=== PATIENT | male | born 1955 | race Caucasian/White ===

== ENCOUNTER 2016-10-07 17:23 | Emergency (ER) | payer BC ==
[2016-10-07 21:40] LABS: HEMOGLOBIN 16.1 gm/dl (14.0-17.5); RED BLOOD COUNT 5.05 M/UL (4.20-5.50); WHITE BLOOD COUNT 9.1 K/UL (4.5-11.0)
[2016-10-07 22:19] LABS: BUN/CREATININE RATIO 11 (0-10)
== END 2016-10-08 01:39 | disposition home or self-care (01) ==
LOC: ER1 17:23
PROVIDERS: Specialist/Technologist Athletic Trainer
DX: I49.3 Ventricular premature depolarization (principal); R00.8 Other abnormalities of heart beat; I10 Essential (primary) hypertension; J44.9 Chronic obstructive pulmonary disease, unspecified; F17.200 Nicotine dependence, unspecified, uncomplicated; Z88.8 Allergy status to other drugs, medicaments and biological substances
CPT/HCPCS: 36415; 71250; 80053; 82550; 82553; 83605; 83874; 83880; 84439; 84443; 84484; 85025; 93005; 94664; 96360; 99285; J7040

== ENCOUNTER 2016-11-18 18:35 | Inpatient (IN) | payer BC ==
[~2016-11-18] VITALS: Ht 180.3 cm; Wt 90.7 kg
[2016-11-18 19:33] LABS: HEMOGLOBIN 15.6 gm/dl (14.0-17.5); RED BLOOD COUNT 4.85 M/UL (4.20-5.50); WHITE BLOOD COUNT 8.7 K/UL (4.5-11.0)
[2016-11-18 20:04] LABS: BUN/CREATININE RATIO 13 (0-10)
[2016-11-19] MEDS ORDERED: ENDOCET 5-3251 EACH PO (00:23)
[2016-11-19] MEDS ORDERED: PROAIR HFA8.5 GM INH (00:27)
[2016-11-19] MEDS ORDERED: NEURONTIN 300300 MG PO (00:29)
[2016-11-19] MEDS ORDERED: PROMETHAZINE HC25 M1 PO (00:30)
[2016-11-19] MEDS ORDERED: ALLOPURINOL300 MG PO (00:33)
[2016-11-19] MEDS ORDERED: ZYRTEC10 M3 PO (00:34)
[2016-11-19] MEDS ORDERED: METOPROLOL TART25 MG PO (00:35)
[2016-11-19 06:57] LABS: BUN/CREATININE RATIO 14 (0-10)
[2016-11-19 07:48] LABS: RED BLOOD COUNT 4.44 M/UL (4.20-5.50); WHITE BLOOD COUNT 10.8 K/UL (4.5-11.0)
[2016-11-20 05:58] LABS: HEMOGLOBIN 14.2 gm/dl (14.0-17.5); RED BLOOD COUNT 4.46 M/UL (4.20-5.50); WHITE BLOOD COUNT 8.9 K/UL (4.5-11.0)
[2016-11-20 06:17] LABS: BUN/CREATININE RATIO 13 (0-10)
[2016-11-21 03:42] LABS: HEMOGLOBIN 13.5 gm/dl (14.0-17.5); RED BLOOD COUNT 4.26 M/UL (4.20-5.50); WHITE BLOOD COUNT 9.3 K/UL (4.5-11.0)
[2016-11-21 04:01] LABS: BUN/CREATININE RATIO 15 (0-10)
[2016-11-22 03:52] LABS: HEMOGLOBIN 12.8 gm/dl (14.0-17.5); RED BLOOD COUNT 4.04 M/UL (4.20-5.50)
[2016-11-22 04:00] LABS: WHITE BLOOD COUNT 5.7 K/UL (4.5-11.0)
[2016-11-22 04:15] LABS: BUN/CREATININE RATIO 28 (0-10)
[2016-11-23 03:37] LABS: HEMOGLOBIN 12.8 gm/dl (14.0-17.5); RED BLOOD COUNT 4.1 M/UL (4.20-5.50); WHITE BLOOD COUNT 4.7 K/UL (4.5-11.0)
[2016-11-23 03:53] LABS: BUN/CREATININE RATIO 33 (0-10)
[2016-11-24 03:52] LABS: HEMOGLOBIN 14.3 gm/dl (14.0-17.5); RED BLOOD COUNT 4.51 M/UL (4.20-5.50)
[2016-11-24 03:57] LABS: WHITE BLOOD COUNT 8.3 K/UL (4.5-11.0)
[2016-11-24 04:17] LABS: BUN/CREATININE RATIO 34 (0-10)
[2016-11-25 03:52] LABS: HEMOGLOBIN 13.6 gm/dl (14.0-17.5); RED BLOOD COUNT 4.33 M/UL (4.20-5.50)
[2016-11-25 03:54] LABS: WHITE BLOOD COUNT 5.6 K/UL (4.5-11.0)
[2016-11-25 04:12] LABS: BUN/CREATININE RATIO 41 (0-10)
[2016-11-26 07:56] LABS: BUN/CREATININE RATIO 47 (0-10)
[2016-11-26 09:17] LABS: HEMOGLOBIN 14.7 gm/dl (14.0-17.5); RED BLOOD COUNT 4.67 M/UL (4.20-5.50)
[2016-11-26 09:22] LABS: WHITE BLOOD COUNT 12.5 K/UL (4.5-11.0)
[2016-11-27 05:01] LABS: HEMOGLOBIN 13.9 gm/dl (14.0-17.5); RED BLOOD COUNT 4.38 M/UL (4.20-5.50); WHITE BLOOD COUNT 9.4 K/UL (4.5-11.0)
[2016-11-27 05:28] LABS: BUN/CREATININE RATIO 43 (0-10)
[2016-11-28 03:57] LABS: BUN/CREATININE RATIO 38 (0-10)
[2016-11-29] MEDS ORDERED: AMLODIPINE BESY10 MG PO (12:22)
[2016-11-29] MEDS ORDERED: CATAPRES0.2 MG PO (12:22)
[2016-11-29] MEDS ORDERED: LOPRESSOR 50 MG50 MG PO (12:25)
[2016-11-29] MEDS ORDERED: VENTOLIN/PROVE0.5 ML INH (12:27)
[2016-11-29] MEDS ORDERED: MEDROL4 MG PO (12:28)
== END 2016-11-29 13:15 | disposition home or self-care (01) | DRG 870 ==
LOC: ER1 18:35 → CCU 22:25 → ZEROF 22:25 → PROG CARE 22:25 → M/S 22:25 → CCU 11-20 19:28 → PROG CARE 11-26 18:04
PROVIDERS: Emergency Medicine; Hospitalist; Internal Medicine; Physician Assistant; ADMIT Internal Medicine
PROC: 5A1955Z Respiratory Ventilation, Greater than 96 Consecutive Hours (ICD-10-PCS; principal; 2016-11-20)
PROC: 0BH17EZ Insertion of Endotracheal Airway into Trachea, Via Natural or Artificial Opening (ICD-10-PCS; 2016-11-20)
DX: A41.9 Sepsis, unspecified organism (principal); J96.02 Acute respiratory failure with hypercapnia; J96.01 Acute respiratory failure with hypoxia; J15.9 Unspecified bacterial pneumonia; G93.40 Encephalopathy, unspecified; J44.0 Chronic obstructive pulmonary disease with (acute) lower respiratory infection; J44.1 Chronic obstructive pulmonary disease with (acute) exacerbation; J98.11 Atelectasis; R65.20 Severe sepsis without septic shock; E11.65 Type 2 diabetes mellitus with hyperglycemia; I10 Essential (primary) hypertension; I49.3 Ventricular premature depolarization; R00.8 Other abnormalities of heart beat; M10.9 Gout, unspecified; G89.4 Chronic pain syndrome; M54.2 Cervicalgia; F17.200 Nicotine dependence, unspecified, uncomplicated; Z85.820 Personal history of malignant melanoma of skin; Z85.818 Personal history of malignant neoplasm of other sites of lip, oral cavity, and pharynx; Z92.3 Personal history of irradiation; Z79.891 Long term (current) use of opiate analgesic; Z79.899 Other long term (current) drug therapy; Z98.890 Other specified postprocedural states; Z80.6 Family history of leukemia; Z80.0 Family history of malignant neoplasm of digestive organs
CPT/HCPCS: ECHO; 31500; 36415; 36600; 71010; 80048; 80053; 80202; 81001; 82803; 82962; 83036; 83605; 83735; 84100; 84132; 85025; 85027; 87040; 87070; 87205; 93005; 93306; 94002; 94003; 94640; 94660; 94664; 96361; 96374; 96375; 97110; 97116; 97530; 97535; 99291; A4628; C9113; J0360; J0456; J0692; J1100; J1650; J1885; J1940; J1956; J2060; J2270; J2405; J2543; J2920; J2930; J3370; J7030; J7050; J7070; J7120; J7509; Q9963

== ENCOUNTER → 2017-01-03 | Outpatient (CLI) | payer BC ==
[~2017-01-03] MED LIST: ALLOPURINOL300 MG PO; AMLODIPINE BESY10 MG PO; CATAPRES0.2 MG PO; ENDOCET 5-3251 EACH PO; LOPRESSOR 50 MG50 MG PO; MEDROL4 MG PO; METOPROLOL TART25 MG PO; NEURONTIN 300300 MG PO; PROAIR HFA8.5 GM INH; PROMETHAZINE HC25 M1 PO; VENTOLIN/PROVE0.5 ML INH; ZYRTEC10 M3 PO
== END ==
LOC: HEART 5 13:53
DX: J96.90 Respiratory failure, unspecified, unspecified whether with hypoxia or hypercapnia (principal); J43.9 Emphysema, unspecified
CPT/HCPCS: 71020-FX; 94060; 94729

== ENCOUNTER → 2020-12-15 | Outpatient (CLI) | payer MEDICARE ==
[2020-12-15 12:08] LABS: HEMOGLOBIN 15.5 gm/dl (14.0-17.5); RED BLOOD COUNT 4.93 M/UL (4.20-5.50); WHITE BLOOD COUNT 3.6 K/UL (4.5-11.0)
[2020-12-15 12:36] LABS: BUN/CREATININE RATIO 14 (0-10)
== END ==
LOC: LAB 11:11
PROVIDERS: Internal Medicine Hematology & Oncology
DX: C04.9 Malignant neoplasm of floor of mouth, unspecified (principal)
CPT/HCPCS: 36415; 80053; 85007; 85027

== ENCOUNTER → 2020-12-18 | Outpatient (CLI) | payer MEDICARE | LOC: KOH-I 14:11 | DX: M25.572 Pain in left ankle and joints of left foot (principal); M25.571 Pain in right ankle and joints of right foot; M79.672 Pain in left foot; M79.671 Pain in right foot; M79.662 Pain in left lower leg; M79.661 Pain in right lower leg | CPT/HCPCS: 73590; 73610; 73630 ==

== ENCOUNTER → 2021-06-22 | Outpatient (CLI) | payer MEDICARE ==
[2021-06-22 15:01] LABS: HEMOGLOBIN 14.3 gm/dl (14.0-17.5); RED BLOOD COUNT 4.51 M/UL (4.20-5.50); WHITE BLOOD COUNT 3.8 K/UL (4.5-11.0)
[2021-06-22 15:20] LABS: BUN/CREATININE RATIO 8 (0-10)
== END ==
LOC: LAB 13:09
PROVIDERS: Internal Medicine Hematology & Oncology
DX: D69.6 Thrombocytopenia, unspecified (principal)
CPT/HCPCS: 36415; 80053; 85025

== ENCOUNTER → 2021-07-13 | Outpatient (CLI) | payer MEDICARE ==
[~2021-07-13] VITALS: Ht 180.3 cm; Wt 86.2 kg
== END ==
LOC: EROP 10:43
DX: U07.1 COVID-19 (principal)
CPT/HCPCS: 96365

== ENCOUNTER → 2021-12-11 | Outpatient (CLI) | payer MEDICARE ==
[2021-12-11 14:07] LABS: HEMOGLOBIN 14.4 gm/dl (14.0-17.5); RED BLOOD COUNT 4.59 M/UL (4.20-5.50); WHITE BLOOD COUNT 4.3 K/UL (4.5-11.0)
[2021-12-11 14:52] LABS: BUN/CREATININE RATIO 15 (0-10)
== END ==
LOC: LAB 12:21
PROVIDERS: Internal Medicine Hematology & Oncology
DX: C04.9 Malignant neoplasm of floor of mouth, unspecified (principal)
CPT/HCPCS: 36415; 80053; 85007; 85027